=== PATIENT | female | born 1990 | race American Indian/Alaskan Native ===

== ENCOUNTER 2018-09-15 05:33 | Emergency (ER) | payer OTHER ==
[2018-09-15 05:57] VITALS: BP 141/87
[2018-09-15] MEDS ORDERED: NORCO 5/325 PO ONE (07:42)
[2018-09-15] MEDS ORDERED: FLEXERIL PO ONE (07:42)
[2018-09-15] MEDS ORDERED: DELTASONE PO ONE (07:42)
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
== END 2018-09-15 08:58 | disposition home or self-care (01) ==
LOC: ED 05:33
DX: M54.2 Cervicalgia (principal); M79.18 Myalgia, other site; V49.49XA Driver injured in collision with other motor vehicles in traffic accident, initial encounter; Y93.89 Activity, other specified; Y92.89 Other specified places as the place of occurrence of the external cause; Y99.8 Other external cause status
CPT/HCPCS: 72040; J7512